=== PATIENT | male | born 1950 | race African-American/Black ===

== ENCOUNTER → 2016-10-06 | Outpatient (CLI) | payer OTHER ==
[~2016-10-06] VITALS: Ht 180.3 cm; Wt 95.3 kg
[~2016-10-06] MED LIST: IBUPROFEN200 M1 PO; MOBIC15 MG PO; NABUMETONE 750750 M1 PO; NOHOMEMEDICATIONS; PERCOCET 10-321 EACH PO; RELAFEN750 MG PO; TRAMADOL 50 MG50 MG PO; XANAX 0.5 MG0.5 M1 PO
--- NOTE | ~2016-10-06 | HPC ---
[facility] [address] [place] [address] PAIN MANAGEMENT CONSULTATION Name: FABY MARTINEZ Room #: REG JONES Ford#: [id number] Admission: 10/06/16 Attend Phys: Alexys Martins DO Discharge: Date of : 52 Report #: [id number] THIS REPORT FOR: //name// CC: Gabi Martins HISTORY OF PRESENT ILLNESS: The patient is very pleasant 66-year-old gentleman who was prior seen for symptomatic cervical radiculopathy, given cervical epidural injection back in November of last year. In the interval since we last saw him, he did have a right knee arthroscopy in January. He returns to the pain clinic today having some recurrent symptoms in his neck, left shoulder and arm somewhat intermittent. Today he is actually doing pretty well. Rates the pain about a 1/10. Does have some tingling in his left shoulder, arm radiating to the index and long finger. PHYSICAL EXAMINATION: A 66-year-old gentleman. BMI is 29.3 kilograms per meter squared. Vital signs stable as noted in the EMR. Cervical range of motion is actually fairly full. Does have a little mildly positive Lhermitte's on the left, but upper extremity strength is symmetric. Deep tendon reflexes are generally preserved. Skin integument is intact. Little tenderness in the splenius capitis and trapezius. No discrete trigger points noted. DATA: Reviewed diagnostic findings including cervical MRI quite dated from 2008. Nonetheless, he had considerable degenerative changes throughout the cervical spine, particularly severe at C5-C6, central stenosis at C3-C4 through C6-C7. ASSESSMENT: Symptomatic cervical radiculopathy, status post lumbar decompressive laminectomy by history, degenerative joint disease of the right knee, relatively quiescent. RECOMMENDATIONS: After discussion with the patient today, we have elected to simply start him on a nonsteroidal anti-inflammatory medication, Meloxicam 15 mg 1 a day. I have taken the liberty of writing for 30 tablets with 1 refill. If symptoms continue despite reasonable dose of a nonsteroid anti-inflammatory, we will see patient back and as needed for consideration for cervical epidural injection under fluoroscopy. We did today discuss risk of nonsteroidal anti-inflammatory medication and cardiac disease. The patient does not have any personal history of heart disease nor family history. He is not hypertensive, does not have any other cardiac risk other than the fact [place] [address] PAIN MANAGEMENT CONSULTATION Name: FABY MARTINEZ Room #: REG JONES Ford#: [id number] Admission: 10/06/16 Attend Phys: Alexys Martins DO Discharge: Date of : 52 Report #: [id number] ASSESSMENT: Symptomatic cervical radiculopathy, symptoms relatively quiescent at present. We will start Meloxicam and see as needed. <ELECTRONICALLY SIGNED> By: Alexys Martins DO 10/09/16 1228 1537 0406 Alexys Martins DO /alonso
[2016-10-06 08:12] VITALS: BP 135/75
== END | disposition home or self-care (01) ==
LOC: PAIN 06:49
DX: M54.12 Radiculopathy, cervical region (principal); M17.11 Unilateral primary osteoarthritis, right knee

== ENCOUNTER → 2017-04-24 | Outpatient (CLI) | payer OTHER ==
--- NOTE | ~2017-04-24 | EKG ---
[place] [address] [address] [place] [address] ELECTROCARDIOGRAM REPORT Name: FABY MARTINEZ Room #: REG [facility] Ford#: [id number] Admission: 04/24/17 Attend Phys: Babs Acosta MD Discharge: Date of : 52 Report #: [id number] THIS REPORT FOR: //name// [facility] Test Date: 2017-04-24 Test Time: 13:27:24 Pat Name: FABY MARTINEZ Department: Room: Gender: Collections Analyst: Garry CELESTIN : 1950 Requested By: Babs Acosta Order Number: [id number] MD: Chava Chou Measurements Intervals [place] Rate: 67 P: 64 HI: 147 QRS: -13 QRSD: 86 T: 16 QT: 378 QTc: 399 Interpretive Statements Sinus rhythm Abnormal R-wave progression, early transition Compared to ECG 03/24/2003 10:36:47 No significant changes Electronically Signed On 04-25-2017 7:47:22 CDT by Chava Chou [email or web address] <ELECTRONICALLY SIGNED> By: Chava Chou MD, [facility] 04/25/17 0747 26 26 Chava Chou MD, [facility] /EPI
== END ==
LOC: CV 12:57
DX: Z01.818 Encounter for other preprocedural examination (principal)

== ENCOUNTER → 2017-10-19 | Outpatient (CLI) | payer OTHER | LOC: CAT 14:04 | DX: Z13.6 Encounter for screening for cardiovascular disorders (principal) ==

== ENCOUNTER → 2017-11-06 | Outpatient (CLI) | payer OTHER | LOC: RAD 08:45 | DX: M47.894 Other spondylosis, thoracic region (principal); R59.9 Enlarged lymph nodes, unspecified; M54.12 Radiculopathy, cervical region; M47.892 Other spondylosis, cervical region ==

== ENCOUNTER → 2018-06-19 | Outpatient (CLI) | payer OTHER | LOC: RAD 15:19 | DX: M79.671 Pain in right foot (principal) ==

== ENCOUNTER → 2018-07-03 | Outpatient (CLI) | payer OTHER | LOC: ULTRA 09:57 | DX: I73.9 Peripheral vascular disease, unspecified (principal) ==

== ENCOUNTER 2018-07-29 06:02 | Emergency (ER) | payer OTHER ==
[~2018-07-29] VITALS: Ht 180.3 cm; Wt 90.7 kg
--- NOTE | ~2018-07-29 | EKG ---
[place] [address] [place] [address] ELECTROCARDIOGRAM REPORT Name: FABY MARTINEZ [facility] #: [facility] [id number] Admission: 07/29/18 Attend Phys: Discharge: Date of : 52 Report #: [id number] THIS REPORT FOR: //name// [facility] ED Test Date: 2018-07-29 Test Time: 06:47:01 Pat Name: FABY MARTINEZ Department: Room: Gender: Collections Clerk: HARDIK : 1950 Requested By: Damián Lazo Order Number: [id number] MD: Chava Chou Measurements Intervals [place] Rate: 69 P: 51 AR: 153 QRS: -19 QRSD: 97 T: 19 QT: 373 QTc: 400 Interpretive Statements Sinus rhythm Abnormal R-wave progression, early transition Compared to ECG 04/24/2017 13:27:24 No significant changes Electronically Signed On 07-29-2018 8:22:31 GAMEROOM TECHNICIAN by Chava Chou [email or web address] <ELECTRONICALLY SIGNED> By: Chava Chou MD, [facility] 07/29/18 0822 0647 0647 Chava Chou MD, [facility] /EPI
[2018-07-29 06:43] LABS: ABSOLUTE NEUTROPHILS 2.7 thou/uL (1.4-8.2); BASOPHILS 0.7 % (0.0-2.0); HEMATOCRIT 44.4 % (42.0-52.0); LYMPHOCYTES 39.2 % (24.0-44.0); MCH 29.2 pg (26.0-34.0); MCHC 33.8 g/dL (28.0-37.0); MCV 86.4 fL (80.0-100.0); MONOCYTES 9.2 % (1.0-8.0); PLATELET COUNT 155 thou/uL (150-400); POLYS 49.9 % (36.0-66.0); RBC 5.14 mil/uL (4.50-6.00); RDW 13.5 % (10.5-14.5); WBC 5.4 thou/uL (4.0-11.0)
[2018-07-29 06:54] LABS: FIBRINOGEN 282.9 mg/dL (210-360); PROTIME 10.7 Seconds (9.3-11.4)
[2018-07-29 06:59] LABS: ANION GAP 11 mmol/L (7-16); BUN 10 mg/dL (7-18); CALCIUM 9.6 mg/dL (8.5-10.1); CHLORIDE 102 mmol/L (98-107); CO2 25 mmol/L (21-32); GLUCOSE 123 mg/dL (74-106); POTASSIUM 3.7 mmol/L (3.5-5.1); SODIUM 138 mmol/L (136-145)
[2018-07-29 07:06] LABS: ALBUMIN 4.2 g/dL (3.4-5.0); MAGNESIUM 1.9 mg/dL (1.8-2.4); SGOT 19 U/L (15-37); SGPT 31 U/L (30-65); TOTAL BILIRUBIN 0.5 mg/dL (<0.1-1.0); TOTAL PROTEIN 8.1 g/dL (6.4-8.2); TROPONIN-I <0.06 ng/mL (<0.06)
[2018-07-29] MEDS ORDERED: BUTALB-APAP-CA1 EACH PO (08:07)
[2018-07-29] MEDS ORDERED: AUGMENTIN 500-1 EACH PO (08:07)
[2018-07-29] MEDS ORDERED: ANTIVERT25 MG PO (08:07)
[2018-07-29] MEDS ORDERED: ZOFRAN8 MG PO (08:07)
[2018-07-29 08:30] VITALS: BP 152/80
== END 2018-07-29 09:20 | disposition home or self-care (01) ==
LOC: ER 06:02
PROVIDERS: Emergency Medicine
DX: J01.90 Acute sinusitis, unspecified (principal); R11.2 Nausea with vomiting, unspecified; H92.02 Otalgia, left ear; H91.92 Unspecified hearing loss, left ear; F17.210 Nicotine dependence, cigarettes, uncomplicated

== ENCOUNTER → 2019-10-31 | Outpatient (CLI) | payer OTHER ==
[~2019-10-31] MED LIST changes: +ANTIVERT25 MG PO; +AUGMENTIN 500-1 EACH PO; +BUTALB-APAP-CA1 EACH PO; +ZOFRAN8 MG PO
== END ==
LOC: RAD 07:56
DX: M25.512 Pain in left shoulder (principal)

== ENCOUNTER → 2019-11-28 | Outpatient (CLI) | payer OTHER | LOC: MRI 13:58 | DX: S46.012A Strain of muscle(s) and tendon(s) of the rotator cuff of left shoulder, initial encounter (principal); M19.012 Primary osteoarthritis, left shoulder; M75.82 Other shoulder lesions, left shoulder; X58.XXXA Exposure to other specified factors, initial encounter; Y93.89 Activity, other specified; Y92.89 Other specified places as the place of occurrence of the external cause; Y99.8 Other external cause status ==

== ENCOUNTER → 2020-03-03 | Day surgery (SDC) | payer OTHER ==
[~2020-03-03] VITALS: Ht 180.3 cm; Wt 86.2 kg
--- NOTE | ~2020-03-03 | O ---
[facility] [place] [address] OPERATIVE REPORT Name: FABY MARTINEZ Room #: REG [facility] M.Atiya.#: [id number] Admission: 03/03/20 Attend Phys: Aneudy Noble Discharge: Date of : 52 Report #: [id number] THIS REPORT FOR: cc: Asha Shen MD, Nora P. MD VanDenBerghe, Gregory R. MD ~ CC: Aneudy Shen DATE OF SERVICE: 03/03/2020 PREOPERATIVE DIAGNOSES: Left shoulder pain, rotator cuff tear, impingement syndrome, mild glenohumeral joint osteoarthritis. POSTOPERATIVE DIAGNOSES: Left shoulder rotator cuff tear, medium size, posterior labral tear, intraarticular synovitis, subacromial bursitis with impingement syndrome. PROCEDURES PERFORMED: Left shoulder arthroscopy, rotator cuff repair, subacromial decompression, extensive debridement. SURGEON: Aneudy Peraza MD. PACKAGE SORTER: None. ANESTHESIA: General with preoperative ultrasound-guided block. FLUIDS: One liter of crystalloid. ESTIMATED BLOOD LOSS: Less than 5 mL. DESCRIPTION OF PROCEDURE: After proper identification of the patient and operative site in preoperative holding area, the operative site was signed by myself. Prophylactic antibiotics were given. The patient elected to receive an ultrasound-guided block after reviewing the risks, benefits, alternatives and potential complications with anesthesia. After a satisfactory block, the patient was brought back to the operative suite after induction of satisfactory general anesthesia, the left shoulder was examined. It was stable throughout a full arc of motion comparable to the preoperative assessment. The patient was carefully positioned in the right lateral decubitus position. Keenan bag and axillary roll were utilized to support the torso. Left shoulder was sterilely prepped and draped in the usual manner and placed in 10 pounds of balanced arthroscopic suspension. Posterior portal was established, joint was inflated with an arthroscopic pump set at 40 mmHg. Anterior superior portal was created using a spinal needle for localization. Examination of the glenohumeral joint [facility] [address] [place] [address] OPERATIVE REPORT Name: MARTINEZFABY Room #: REG [facility] M.Atiya.#: [id number] Admission: 03/03/20 Attend Phys: Aneudy Noble Discharge: Date of : 52 Report #: [id number] revealed some intraarticular synovitis. This was noted within the rotator interval and superior aspect of the joint. Posterior and posterior inferior labral fraying and tearing was noted and this was carefully debrided with motorized shaver. Long head of the biceps tendon was intact and stable on its attachment to the superior labrum. The biceps demonstrated no groove pathology. Upper border subscapularis was intact. Examination of the glenohumeral joint revealed some mild chondral wear. No exposed bone was noted. There was also evidence of a full thickness minimally retracted rotator cuff tear from the articular side. Arthroscope was introduced in the subacromial space. Thickened subacromial bursa was encountered. This was resected for visualization purposes. There was fraying on the undersurface of the coracoacromial arch and prominence to the anterolateral acromion was noted. Subacromial decompression was performed with motorized bur where approximately 3 mm of bone was resected. After a satisfactory subacromial decompression, the rotator cuff was evaluated further. A crescent-shaped minimally retracted tear of approximately 2 cm in size was noted. Greater tuberosity was prepared with a sharp ring curette and motorized shaver. An additional portal off the lateral border of the acromion had also been created and the rotator cuff was freely mobile and easily reduced to its greater tuberosity footprint. At this point, a triple-loaded anchor 4.75 mm SwiveLock anchor was inserted in its pre-tapped hole. It had good purchase. Suture limbs were passed in a horizontal mattress fashion with two #2 FiberWires and more centrally, the FiberTapes were passed. Sutures were tied from anterior to posterior and a separate more lateral row fixation was utilized using a 4.75 mm SutureTak. Great care was taken to ensure that the sutures were well tensioned before second more lateral row fixation was placed. Repair construct was stable to probing, nicely reduced to the tuberosity. Subacromial space thoroughly irrigated with normal saline. Portals closed with a simple nylon stitch. The patient will be immobilized in a sling and abduction pillow for 6 weeks postoperatively. By: 1349 1443 Aneudy Peraza MD /nt
[2020-03-03 10:50] VITALS: BP 152/71
[2020-03-03 14:31] VITALS: BP 152/71
--- NOTE | 2020-03-03 15:46 | EKG ---
[facility] [place] [address] ELECTROCARDIOGRAM REPORT Name: FABY MARTINEZ Room #: REG [facility] M.R.#: [id number] Admission: 03/03/20 Attend Phys: Aneudy Noble Discharge: Date of : 52 Report #: [id number] THIS REPORT FOR: cc: Asha Shen MD, Nora P. MD Couchonnal, Luis F. MD ~ THIS REPORT FOR: //name// [facility] Test Date: 2020-03-03 Test Time: 10:47:11 Pat Name: FABY MARTINEZ Department: Room: Gender: [employer] Attendant: Faustino BRANHAM : 1950 Requested By: Aneudy Peraza Order Number: [id number] MD: Keegan Kim Measurements Intervals [place] Rate: 65 P: 68 CT: 154 QRS: -3 QRSD: 89 T: 23 QT: 395 QTc: 411 Interpretive Statements Sinus rhythm Abnormal R-wave progression, early transition Compared to ECG 07/29/2018 06:47:01 No significant changes Electronically Signed On 03-03-2020 15:45:49 CDT by Keegan Kim [email or web address] <ELECTRONICALLY SIGNED> By: Keegan Kim MD 03/03/20 1545 1047 1047 Keegan Kim MD /EPI
== END | disposition home or self-care (01) ==
LOC: LAB 02-27 10:13 → EDSTATUS 02-27 16:34 → OR 10:04
PROVIDERS: ATTEND Orthopaedic Surgery Sports Medicine
DX: M25.512 Pain in left shoulder (principal); M75.102 Unspecified rotator cuff tear or rupture of left shoulder, not specified as traumatic; M65.812 Other synovitis and tenosynovitis, left shoulder; M75.52 Bursitis of left shoulder; M75.42 Impingement syndrome of left shoulder; Z11.59 Encounter for screening for other viral diseases; F17.210 Nicotine dependence, cigarettes, uncomplicated; Z98.890 Other specified postprocedural states; Z79.899 Other long term (current) drug therapy
CPT/HCPCS: 50010; 50101; 50172; 50386; 50417; 50935; 51320; 51847; 52001; 52313; 53610; 56527; 57103; 57417; 57420; 62110; 62900; 64039; 70005

== ENCOUNTER → 2020-03-29 | Outpatient (CLI) | payer OTHER | LOC: RAD 11:23 | PROVIDERS: ATTEND Family Medicine | DX: M19.072 Primary osteoarthritis, left ankle and foot (principal) ==

== ENCOUNTER → 2020-04-01 | Outpatient (CLI) | payer OTHER | LOC: ULTRA 10:07 → LABMALL 10:07 | PROVIDERS: ATTEND Family Medicine | DX: I82.402 Acute embolism and thrombosis of unspecified deep veins of left lower extremity (principal); I73.9 Peripheral vascular disease, unspecified; R60.0 Localized edema ==

== ENCOUNTER → 2020-06-01 | Outpatient (CLI) | payer OTHER ==
[2020-06-01 10:09] LABS: CREATININE 0.9 mg/dL (0.7-1.3)
== END ==
LOC: CAT 09:19
PROVIDERS: ATTEND Family Medicine
DX: I82.402 Acute embolism and thrombosis of unspecified deep veins of left lower extremity (principal)

== ENCOUNTER → 2020-12-15 | Outpatient (CLI) | payer OTHER | LOC: RAD 15:32 | PROVIDERS: ATTEND Family Medicine | DX: M51.36 Other intervertebral disc degeneration, lumbar region (principal); M25.78 Osteophyte, vertebrae; M54.40 Lumbago with sciatica, unspecified side ==

== ENCOUNTER → 2021-04-18 | Outpatient (CLI) | payer OTHER | LOC: RAD 15:37 | PROVIDERS: ATTEND Family Medicine | DX: M79.644 Pain in right finger(s) (principal) ==